=== PATIENT | female | born 1950 | race Caucasian/White ===

== ENCOUNTER 2016-12-31 04:40 | Observation (INO) | payer MEDICARE, MEDICAID ==
[~2016-12-31] VITALS: Ht 137.2 cm; Wt 61.9 kg
--- NOTE | ~2016-12-31 | ER ---
ADMIT: 12/31/2016 RM/LOC: [address] [facility] MR#: [id number] [address] [address] [place] [address] Emergency Room Report SEX: F AGE: 66 : 1950 DATE: 12/31/2016 CHIEF COMPLAINT: Delirium. HISTORY OF PRESENT ILLNESS: The patient is a 66-year-old female from [place], transferred with increasing delirium and confusion since 11:00 last night, missed dialysis on Saturday, continues to take hydrocodone 5/325 mg as well as alprazolam. PAST MEDICAL HISTORY: ILLNESSES: Type 2 diabetes; COPD; hyperlipidemia; CHF; hypertension; hemodialysis on Saturday, Saturday, Saturday; anemia of chronic disease; GI bleed in 2016; Mckeon's esophagitis; GERD; blind; diabetic gastropathy; diabetic peripheral neuropathy; renal osteodystrophy; DJD; osteoporosis with multiple fractures; fibromyalgia; chronic pain; depression; anxiety; seasonal allergic rhinitis; Charcot joints and feet; left femur humerus fracture; right humerus tib-fib fracture; MRSA osteomyelitis of right foot. OPERATIONS: Cataract extraction and intraocular lens implant, right arm AV fistula. ALLERGIES: COMPAZINE, KEFLEX, PHENOTHIAZINES. MEDICATIONS: Please see nurse's MAR. SOCIAL HISTORY: , retired. Nonsmoker, nondrinker, no illicit drugs. FAMILY HISTORY: Negative per chart review. REVIEW OF SYSTEMS: A 12-point review of systems negative for all other systems, illnesses, or operations except as outlined above. PHYSICAL EXAMINATION: VITAL SIGNS: Temperature 99.4; pulse 89; respirations 19; BP 153/85; SaO2 of 95% on 5 L, 50% on room air. GENERAL: Toxic appearing, ashen-colored consistent with chronic renal failure, non-diaphoretic without jaundice or icterus. HEENT: Normocephalic. No evidence of epistaxis, rhinorrhea, or otorrhea. NECK: Supple without lymphadenopathy or thyromegaly. CHEST: Clear. Breath sounds diminished with faint expiratory wheeze and crackles in the bases. HEART: Regular rate and rhythm without murmur, gallop, or edema. ABDOMEN: Soft, nontender, nondistended without mass or megaly. Bowel sounds hypoactive. EXTREMITIES: Right arm AV fistula noted with palpable thrill. NEURO: EOMI. PERRLA. No evidence of drift, dysarthria, or ataxia. Gait not assessed. MENTAL STATUS: Obtunded, but will respond to verbal stimuli. MEDICAL DECISION MAKING: The patient received Narcan with prompt awakening with 1 dose. Chest x-ray shows mild CHF. Hemoglobin 8.4, CRP 9.93, potassium ADMIT: 12/31/2016 RM/LOC: [address] [facility] MR#: [id number] [address] [place] [id number] [place] [address] [place] [address] Emergency Room Report SEX: F AGE: 66 : 1950 5.9, sodium 131, creatinine 9.2, BNP 21,322. ABGs 3 L; pH 7.4, pCO2 of 40.1, PO2 of 64. INR 1.0, lactic 0.4. Discussed findings with Dr. Herrera, who agreed with emergent dialysis this morning. Due to the patient's presentation, findings, and intervention, 30 minutes of critical care is warranted. DIAGNOSES: 1. Hypoxemia due to narcotic overdose from [id number] renal failure. 2. Mild congestive heart failure due to gogdr-fq-ystbqia renal failure. 3. Hyperkalemia due to [id number]-pg-[id number] renal failure. 4. Chronic pain. RECOMMENDATION: Admit inpatient PCU for emergent dialysis. CONDITION: Improved. CODE STATUS: The patient is a full code. Marco A Johnson MD/ [place] JOB #: [id number] CC: Tam Hoang DO, Attending Physician Tam Hoang DO, Family Physician
--- NOTE | ~2016-12-31 | CO ---
ADMIT: 12/31/2016 RM/LOC: [address] [facility] MR#: [id number] [address] [address] [place] [address] Consultation SEX: F AGE: 66 : 1950 DATE OF CONSULTATION: 12/31/2016 ATTENDING PHYSICIAN: Tam Hoang CONSULTING PHYSICIAN: Deepak Walsh MD REASON FOR CONSULTATION: End-stage renal disease, on hemodialysis; hyperkalemia. HISTORY OF PRESENT ILLNESS: The patient is a 66-year-old female, who typically dialyzes on a Saturday, Saturday, and Saturday schedule. Her last dialysis was Saturday that is 5 days ago. She missed her dialysis this past Saturday because of feeling ill and diarrhea. She was brought to the hospital earlier this morning from correction because of altered mental status. She is on pain medications and antianxiety medications as an outpatient. She was given Narcan and her mental status improved somewhat. At this time, she has a tremor in her upper extremities. She also complains of diarrhea and feeling cold. She denies any breathing complaints. Although, there is report of hypoxia and had desaturating. She feels weak. REVIEW OF SYSTEMS: A complete review of systems is negative in detail except as mentioned in history of present illness above. PAST MEDICAL HISTORY: 1. Hypertension. 2. Type 2 diabetes mellitus, complicated by diabetic retinopathy, neuropathy, as well as Charcot joints. 3. End-stage renal disease secondary to diabetes mellitus and hypertension. Access is a right forearm AV fistula. 4. Diastolic heart failure. 5. Osteoarthritis. 6. Asthma. 7. Fibromyalgia. 8. MRSA of right foot with osteomyelitis in March 2011. 9. Bacteremia in September 2010. 10.Hip fracture in November 2011. 11.Dyslipidemia. 12.Depression. 13.GERD. 14.Gastroparesis. 15.Legal blindness. 16.Right tibial-fibular fracture in May 2014. 17.Proximal humerus fracture in January 2012. ALLERGIES: COMPAZINE AND KEFLEX. MEDICATIONS: Reviewed in the chart. SOCIAL HISTORY: She lives at a correction. No ongoing tobacco, alcohol, or ADMIT: 12/31/2016 RM/LOC: [address] [facility] MR#: [id number] [address] [address] [place] [address] Consultation SEX: F AGE: 66 : 1950 recreational drug use. FAMILY HISTORY: No family history of chronic kidney disease or renal replacement therapy. Her is on dialysis. PHYSICAL EXAMINATION: VITAL SIGNS: Temperature 99.3 Fahrenheit, pulse 84, blood pressure 147/88. GENERAL: She is in bed and she has a tremor in her upper extremities. HEENT: Head is nontraumatic and normocephalic. Extraocular movements are intact. Pale conjunctivae. Moist mucosa. CHEST: Clear to auscultation. CVS: Regular rhythm. S1 and S2 heard. No rubs, murmurs, or gallops. ABDOMEN: Soft, nontender. EXTREMITIES: No edema. SKIN: No rash or nodules. NEUROLOGIC: She has a tremor. She is otherwise alert and oriented. MUSCULOSKELETAL: Major joints within normal limits. Range of motion within normal limits. Access; right forearm AV fistula with good thrill and bruit. LABORATORY DATA: Reviewed. BMP with sodium 131, potassium 5.9, CO2 of 25, creatinine 9.2, BUN 79, hemoglobin 8.9, calcium 8.7, phosphorus 2.9. ASSESSMENT AND PLAN: 1. End-stage renal disease, on hemodialysis-I will plan for dialysis today. Hopefully, this will help her with her myoclonic jerks as well. It may be prudent to hold pain medications at this time. 2. Hypertension/volume expansion-I will provide ultrafiltration as her hemodynamics allow. Blood pressure is reasonable at this time. 3. Anemia in chronic kidney disease-I will give her DONOVAN on dialysis. 4. Hyperkalemia-plan to dialyze today. Monitor potassium levels. Thank you for this consultation. Please do not hesitate to contact me with any questions. Deepak Walsh MD/ [place] JOB #: [id number] CC: Tam Hoang, Attending Physician Tam Hoang, Family Physician
[~2016-12-31 04:40] MED LIST: ADVAIR 250-501 EACH IH; ADVAIR DIS1 PUFF/DO1 IH; APRESOLINE DPS100 MG PO; APRESOLINE-DPS50 MG PO; ASA325 MG PO; BENADRYL-DPS25 MG PO; BENADRYL25 MG PO; BISCOLAX10 MG PR; CARAFATE DPS1 GM PO; CLARITIN10 MG PO; COSOPT EYE DROP10 ML OD; DUONEB DPS3 ML IH; EYE ITCH RELIEF5 ML OU; GLUCAGON1 MG/ML IM; HUMALOG100 UNIT/1 SQ; LASIX DPS20 MG PO; LEVEMIR100 UNIT/1 SQ; LINZESS145 MCG PO; LYRICA50 MG PO; MAALOX DPS30 ML PO; MIRALAX PACKET17 GM PO; MONTELUKAST SOD10 MG PO; NITROGLYCERIN0.4 MG SL; NORVASC DPS10 MG PO; NORVASC5 MG PO; NOVOLOG100 UNIT/1 SQ; OXY IR DPS5 MG PO; PRILOSEC DPS20 MG PO; PROAIR HFA8.5 GM IH; PROVENTIL HFA6.7 GM IH; QUESTRAN DPS4 GM PO; REGLAN DPS5 MG PO; RENAGEL800 MG PO; RENVELA800 MG PO; SENOKOT8.6 MG PO; SINEMET 25-1001 EACH PO; SINGULAIR10 MG PO; SURFAK DPS240 MG PO; SURFAK240 MG PO; TRAVATAN2.5 ML OD; TRIPHROCAPS SOFT1 MG PO; TYLENOL325 MG PO; WELLBUTRIN100 MG PO; XANAX DPS0.5 MG PO; XANAX0.25 MG PO; ZESTRIL DPS20 MG PO; ZOCOR DPS20 MG PO; ZOFRAN4 M1 PO; ZOVIRAX400 MG PO; [UNRECOGNIZED DRUG - OTHER] PO
--- NOTE | 2017-01-03 07:56 | HP ---
ADMIT: 12/31/2016 RM/LOC: [address] [facility] MR#: [id number] [address] [address] [place] [address] History and Physical SEX: F AGE: 66 : 1950 DATE OF SERVICE: 12/31/2016 REASON FOR HOSPITALIZATION: Mental status change, altered level of consciousness. HISTORY OF PRESENT ILLNESS: This 66-year-old female patient, came to the emergency room with the above, reports that she was having some change in her level of consciousness. She missed her dialysis session last Saturday reportedly because she was feeling ill and having some diarrhea. Through the weekend, she cannot really relay any specific concerns, but this morning was transported to [place] where she did receive a dose of Narcan and awakened and became somewhat agitated. She is now being admitted for further monitoring and management. PAST MEDICAL HISTORY: She does have a history of diabetes, end-stage renal disease, hypertension, depression, neuropathy, blindness, Charcot foot and ankles, reflux disease, and chronic pain. MEDICATIONS: Her medication list is being compiled at the time of this dictation in the emergency room. SOCIAL HISTORY: She is . She lives in a senior living with her , who is also on dialysis. FAMILY HISTORY: Noncontributory. REVIEW OF SYSTEMS: She cannot really describe any specific concerns other than just "feeling sick." She is currently denying any nausea and vomiting, although she has had problems with gastroparesis in the past. She has had some diarrhea according to the senior living report. PHYSICAL EXAMINATION: GENERAL: She arouses. She is not a good historian. She tries to answer questions and is somewhat appropriate in her answers. HEART: Regular. LUNGS: Clear. ABDOMEN: Soft, nontender. She has no peripheral edema. LABORATORY DATA: She does have a BUN of 79, creatinine 9.2, sodium 131, potassium 5.9, hemoglobin is 8.9. ADMIT: 12/31/2016 RM/LOC: [address] [facility] MR#: [id number] [address] [address] [place] [address] History and Physical SEX: F AGE: 66 : 1950 IMAGING: Chest x-ray has been performed and is pending report. IMPRESSION: 1. Mental status change and change of level of consciousness, improved with Narcan and desaturation resolved with 2 L of oxygen per nasal cannula. 2. End-stage renal disease, in need of a dialysis session. PLAN: She is being admitted, we will monitor her mental status on telemetry, ask Dr. Walsh to see for dialysis management. I will review her home med list. We will check a stool for C. difficile. Tam Hoang DO/ modl JOB #: [id number] CC: Tam Hoang, Attending Physician Tam Hoang, Family Physician
[2017-01-03] MEDS ORDERED: CLARITIN DPS10 MG PO (19:10)
[2017-01-03] MEDS ORDERED: COREG25 MG PO (19:11)
[2017-01-03] MEDS ORDERED: [UNRECOGNIZED DRUG - OTHER] PO (19:12)
[2017-01-03] MEDS ORDERED: PROTONIX40 MG PO (19:12)
[2017-01-03] MEDS ORDERED: LYRICA50 MG PO (19:12)
[2017-01-03] MEDS ORDERED: SINEMET 25-1001 EACH PO (19:14)
[2017-01-03] MEDS ORDERED: MONTELUKAST SOD10 MG PO (19:14)
[2017-01-03] MEDS ORDERED: TYLENOL DPS325 MG PO (19:15)
[2017-01-03] MEDS ORDERED: WELLBUTRIN SR100 MG PO (19:16)
[2017-01-03] MEDS ORDERED: ZESTRIL DPS10 MG PO (19:16)
[2017-01-03] MEDS ORDERED: DULERA 200/58.8 GM IH (19:17)
[2017-01-03] MEDS ORDERED: ZOLOFT100 MG PO (19:17)
[2017-01-03] MEDS ORDERED: BENTYL-DPS20 MG PO (19:18)
[2017-01-03] MEDS ORDERED: FLONASE 0.05% D16 GM NS (19:18)
[2017-01-03] MEDS ORDERED: DIFLUCAN DPS200 MG PO (19:19)
[2017-01-03] MEDS ORDERED: LIPITOR DPS10 MG PO (19:19)
[2017-01-03] MEDS ORDERED: RENAGEL800 MG PO (19:20)
[2017-01-03] MEDS ORDERED: REGLAN DPS5 MG PO (19:20)
[2017-01-03] MEDS ORDERED: SLOW-MAG71.5 MG PO (19:21)
[2017-01-03] MEDS ORDERED: ULTRAM DPS50 MG PO (19:21)
[2017-01-03] MEDS ORDERED: XALATAN2.5 ML OD (19:22)
[2017-01-03] MEDS ORDERED: COSOPT PLUS DPS10 ML OD (19:22)
[2017-01-03] MEDS ORDERED: [UNRECOGNIZED DRUG - OTHER] PO (19:22)
[2017-01-03] MEDS ORDERED: HUMALOG100 UNIT/1 SQ (19:23)
[2017-01-03] MEDS ORDERED: LEVEMIR100 UNIT/1 SQ (19:23)
[2017-01-03] MEDS ORDERED: LEVAQUIN D IV (19:24)
[2017-01-03] MEDS ORDERED: GLUTOSE 1537.5 GM PO (19:25)
[2017-01-03] MEDS ORDERED: IMODIUM DPS2 MG PO (19:26)
[2017-01-03] MEDS ORDERED: NORCO 5-325 TA1 EACH PO (19:26)
[2017-01-03] MEDS ORDERED: ZOFRAN4 MG PO (19:27)
[2017-01-03] MEDS ORDERED: COLACE-DPS100 MG PO (19:28)
[2017-01-03] MEDS ORDERED: MIRALAX PACKET17 GM PO (19:28)
[2017-01-03] MEDS ORDERED: KAYEXALATE7.5 GM/30 PO (19:29)
[2017-01-03] MEDS ORDERED: TESSALON PERLE100 M1 PO (19:29)
[2017-01-03] MEDS ORDERED: DULCOLAX-DPS10 MG PR (19:30)
[2017-01-03] MEDS ORDERED: PROVENTIL2.5 MG/3 M IH (19:30)
[2017-01-03] MEDS ORDERED: GLUCAGEN1 M1 IM (19:31)
[2017-01-03] MEDS ORDERED: MYCOSTATIN PWD15 GM TP (19:31)
[2017-01-03] MEDS ORDERED: NITROSTAT0.4 MG SL (19:31)
[2017-01-03] MEDS ORDERED: LOTRIMIN 1% DPS30 ML TP (19:32)
== END 2017-01-02 14:04 ==
LOC: ER 04:40 → 4PCU 06:16
PROVIDERS: ADMIT Internal Medicine
DX: R40.20 Unspecified coma (principal); E11.22 Type 2 diabetes mellitus with diabetic chronic kidney disease; I13.2 Hypertensive heart and chronic kidney disease with heart failure and with stage 5 chronic kidney disease, or end stage renal disease; I50.30 Unspecified diastolic (congestive) heart failure; N18.6 End stage renal disease; D63.1 Anemia in chronic kidney disease; E87.5 Hyperkalemia; F32.9 Major depressive disorder, single episode, unspecified; G62.9 Polyneuropathy, unspecified; K21.9 Gastro-esophageal reflux disease without esophagitis; G89.29 Other chronic pain; M19.90 Unspecified osteoarthritis, unspecified site; J45.909 Unspecified asthma, uncomplicated; M79.7 Fibromyalgia; Z88.8 Allergy status to other drugs, medicaments and biological substances; Z79.899 Other long term (current) drug therapy; Z79.891 Long term (current) use of opiate analgesic